=== PATIENT | female | born 1985 | race Caucasian/White ===

== ENCOUNTER 2016-02-16 20:40 | Emergency (ER) | payer MEDICAID ==
[2016-02-16] MEDS ORDERED: ONDANSETRON ODT 4 MG TAB ONE (21:08)
== END 2016-02-16 21:58 | disposition home or self-care (01) ==
LOC: ER 20:40
CPT/HCPCS: 74022; 87804

== ENCOUNTER 2016-03-16 08:49 | Emergency (ER) | payer MEDICAID ==
[2016-03-16] MEDS ORDERED: OPTIRAY 350 100 ML VIAL HMH IV ONE (08:50)
== END 2016-03-16 12:40 | disposition home or self-care (01) ==
LOC: ER 08:49
DX: K59.00 Constipation, unspecified (principal); N28.89 Other specified disorders of kidney and ureter
CPT/HCPCS: 36415; 74177; 80053; 81003; 83690; 84703; 85025; 87491; 87591; 87800